=== PATIENT | female | born 1960 | race Caucasian/White ===

== ENCOUNTER 2017-08-20 13:25 | Outpatient (CLI) | payer MEDICAID ==
[~2017-08-20 13:25] MED LIST: DICL50TA8 PO
[2017-08-20 13:33] VITALS: BP 139/67
== END 2017-08-20 13:58 | disposition home or self-care (01) ==
LOC: ORTHO 13:25
PROVIDERS: ATTEND Nurse Practitioner Family
DX: S52.502A Unspecified fracture of the lower end of left radius, initial encounter for closed fracture (principal); F17.210 Nicotine dependence, cigarettes, uncomplicated; F15.90 Other stimulant use, unspecified, uncomplicated; Z88.1 Allergy status to other antibiotic agents; Z59.0 Homelessness; X58.XXXA Exposure to other specified factors, initial encounter; Y93.89 Activity, other specified; Y92.89 Other specified places as the place of occurrence of the external cause; Y99.8 Other external cause status
CPT/HCPCS: 29075; A4590

== ENCOUNTER 2017-09-15 14:37 | Outpatient (CLI) | payer MEDICAID | END 2017-09-15 15:30 | disposition home or self-care (01) | LOC: ORTHO 14:37 | PROVIDERS: ATTEND Nurse Practitioner Family | DX: S52.502K Unspecified fracture of the lower end of left radius, subsequent encounter for closed fracture with nonunion (principal); F15.90 Other stimulant use, unspecified, uncomplicated; Z88.8 Allergy status to other drugs, medicaments and biological substances; Z59.0 Homelessness; X58.XXXD Exposure to other specified factors, subsequent encounter | CPT/HCPCS: 29075; 73110; A4590 ==

== ENCOUNTER 2017-09-29 14:09 | Outpatient (CLI) | payer MEDICAID ==
[~2017-09-29] VITALS: Ht 167.6 cm; Wt 57.0 kg
[2017-09-29 14:33] VITALS: BP 180/121
[2017-09-29 14:37] VITALS: BP 154/81
[2017-09-29 14:45] VITALS: BP 154/81
== END 2017-09-29 15:07 | disposition home or self-care (01) ==
LOC: ORTHO 14:09
PROVIDERS: ATTEND Nurse Practitioner Family
DX: S52.502K Unspecified fracture of the lower end of left radius, subsequent encounter for closed fracture with nonunion (principal); E78.00 Pure hypercholesterolemia, unspecified; F17.210 Nicotine dependence, cigarettes, uncomplicated; F20.9 Schizophrenia, unspecified; F32.9 Major depressive disorder, single episode, unspecified; F41.9 Anxiety disorder, unspecified; G89.29 Other chronic pain; I10 Essential (primary) hypertension; F15.90 Other stimulant use, unspecified, uncomplicated; Z59.0 Homelessness; Z87.11 Personal history of peptic ulcer disease; Z60.2 Problems related to living alone; X58.XXXD Exposure to other specified factors, subsequent encounter
CPT/HCPCS: 73200

== ENCOUNTER 2017-10-26 20:00 | Emergency (ER) | payer MEDICAID ==
[~2017-10-26] VITALS: Ht 167.6 cm; Wt 60.0 kg
[~2017-10-26 20:00] MED LIST changes: +NAPR-56 PO
[2017-10-26] MEDS ORDERED: AZIT250T PO (21:44)
[2017-10-26] MEDS ORDERED: ALBU8.5H8 IH (21:44)
[2017-10-26] MEDS ORDERED: azithromycin 250mg tablet PO ONE (21:45)
[2017-10-26] MEDS ORDERED: ipratropium/albuterol 3ml nebule NEB ONE (21:45)
[2017-10-26 22:37] VITALS: BP 125/65
== END 2017-10-26 22:39 | disposition home or self-care (01) ==
LOC: ER 20:01
DX: J20.9 Acute bronchitis, unspecified (principal); E78.00 Pure hypercholesterolemia, unspecified; I10 Essential (primary) hypertension; G89.29 Other chronic pain; F15.10 Other stimulant abuse, uncomplicated; Z60.2 Problems related to living alone; Z59.0 Homelessness; Z56.0 Unemployment, unspecified; Z79.899 Other long term (current) drug therapy
CPT/HCPCS: 71045; 94640; 94760; 99283

== ENCOUNTER 2017-10-28 21:22 | Emergency (ER) | payer MEDICAID ==
[~2017-10-28] VITALS: Ht 167.6 cm; Wt 58.8 kg
[~2017-10-28 21:22] MED LIST changes: +ALBU8.5H8 IH; +AZIT250T PO
[2017-10-28] MEDS ORDERED: ibuprofen tablet 400 MG TABLET PO ONE (23:15)
[2017-10-28] MEDS ORDERED: acetaminophen 325mg tablet PO ONE (23:15)
[2017-10-29] MEDS ORDERED: HYDROcodone/acetaminophen 10/325mg tab PO ONE (00:30)
[2017-10-29 00:48] VITALS: BP 164/78
[2017-10-30] MEDS ORDERED: HYDR-3965 PO (10:12)
== END 2017-10-29 00:55 | disposition home or self-care (01) ==
LOC: ER 21:22
DX: S60.212A Contusion of left wrist, initial encounter (principal); I10 Essential (primary) hypertension; E78.00 Pure hypercholesterolemia, unspecified; G89.29 Other chronic pain; M19.90 Unspecified osteoarthritis, unspecified site; F15.10 Other stimulant abuse, uncomplicated; Z86.14 Personal history of Methicillin resistant Staphylococcus aureus infection; Z59.0 Homelessness; Z56.0 Unemployment, unspecified; Z60.2 Problems related to living alone; Z88.8 Allergy status to other drugs, medicaments and biological substances; Z79.899 Other long term (current) drug therapy; Z98.890 Other specified postprocedural states; X58.XXXA Exposure to other specified factors, initial encounter; Y93.89 Activity, other specified; Y92.89 Other specified places as the place of occurrence of the external cause; Y99.8 Other external cause status
CPT/HCPCS: 29125; 99283

== ENCOUNTER 2017-10-29 21:44 | Emergency (ER) | payer MEDICAID ==
[~2017-10-29] VITALS: Ht 167.6 cm; Wt 59.8 kg
[2017-10-29] MEDS ORDERED: acetaminophen 325mg tablet PO ONE (22:55)
[2017-10-29] MEDS ORDERED: ibuprofen 200mg tablet PO ONE (22:55)
[2017-10-29 23:50] VITALS: BP 117/119
[2017-10-30] MEDS ORDERED: HYDR-3965 PO (10:12)
== END 2017-10-29 23:50 | disposition home or self-care (01) ==
LOC: ER 21:44
DX: M79.602 Pain in left arm (principal); E78.00 Pure hypercholesterolemia, unspecified; I10 Essential (primary) hypertension; G89.29 Other chronic pain; F15.10 Other stimulant abuse, uncomplicated; Z56.0 Unemployment, unspecified; Z59.0 Homelessness; Z88.8 Allergy status to other drugs, medicaments and biological substances
CPT/HCPCS: 99284

== ENCOUNTER 2017-10-30 09:40 | Emergency (ER) | payer MEDICAID ==
[~2017-10-30] VITALS: Ht 167.6 cm; Wt 51.0 kg
[2017-10-30] MEDS ORDERED: HYDROcodone/acetaminophen 5mg/325mg tablet PO ONE (10:10)
[2017-10-30] MEDS ORDERED: HYDR-3965 PO (10:12)
[2017-10-30 10:50] VITALS: BP 154/92
== END 2017-10-30 10:45 | disposition home or self-care (01) ==
LOC: ER 09:40
DX: G89.18 Other acute postprocedural pain (principal); E78.00 Pure hypercholesterolemia, unspecified; I10 Essential (primary) hypertension; G89.29 Other chronic pain; M19.90 Unspecified osteoarthritis, unspecified site; F17.210 Nicotine dependence, cigarettes, uncomplicated; F15.10 Other stimulant abuse, uncomplicated; Z56.0 Unemployment, unspecified; Z59.0 Homelessness; Z60.2 Problems related to living alone; Z86.14 Personal history of Methicillin resistant Staphylococcus aureus infection; Z88.8 Allergy status to other drugs, medicaments and biological substances; Z79.899 Other long term (current) drug therapy
CPT/HCPCS: 99284

== ENCOUNTER 2017-11-06 12:11 | Emergency (ER) | payer MEDICAID ==
[~2017-11-06] VITALS: Ht 167.6 cm; Wt 55.0 kg
[~2017-11-06 12:11] MED LIST changes: +HYDR-3965 PO
[2017-11-06 12:27] VITALS: BP 151/86
[2017-11-06] MEDS ORDERED: IBUP-1984 PO (15:54)
== END 2017-11-06 16:30 | disposition home or self-care (01) ==
LOC: ER 12:12
DX: S52.92XG Unspecified fracture of left forearm, subsequent encounter for closed fracture with delayed healing (principal); E78.00 Pure hypercholesterolemia, unspecified; I10 Essential (primary) hypertension; G89.29 Other chronic pain; F15.10 Other stimulant abuse, uncomplicated; Z59.0 Homelessness; Z60.2 Problems related to living alone; Z56.0 Unemployment, unspecified; X58.XXXD Exposure to other specified factors, subsequent encounter
CPT/HCPCS: 99284

== ENCOUNTER 2017-11-15 09:55 | Emergency (ER) | payer MEDICAID ==
[~2017-11-15] VITALS: Ht 167.6 cm; Wt 58.1 kg
[~2017-11-15 09:55] MED LIST changes: +IBUP-1984 PO
[2017-11-15 10:08] VITALS: BP 163/87
== END 2017-11-15 12:28 | disposition home or self-care (01) ==
LOC: ER 09:57
DX: F43.9 Reaction to severe stress, unspecified (principal); M79.632 Pain in left forearm; Z47.89 Encounter for other orthopedic aftercare; G89.29 Other chronic pain; I10 Essential (primary) hypertension; F15.10 Other stimulant abuse, uncomplicated; E78.00 Pure hypercholesterolemia, unspecified; Z86.14 Personal history of Methicillin resistant Staphylococcus aureus infection; M19.90 Unspecified osteoarthritis, unspecified site; Z98.890 Other specified postprocedural states; Z88.6 Allergy status to analgesic agent; Z88.8 Allergy status to other drugs, medicaments and biological substances; Z59.0 Homelessness; Z56.0 Unemployment, unspecified; Z60.2 Problems related to living alone
CPT/HCPCS: 29125; 99283

== ENCOUNTER 2017-11-19 13:50 | Outpatient (CLI) | payer MEDICAID ==
[~2017-11-19 13:50] MED LIST changes: -NAPR-56 PO
== END 2017-11-19 14:30 | disposition home or self-care (01) ==
LOC: ORTHO 13:50
PROVIDERS: ATTEND Nurse Practitioner Family
DX: S52.502D Unspecified fracture of the lower end of left radius, subsequent encounter for closed fracture with routine healing (principal); Z59.0 Homelessness; Z88.6 Allergy status to analgesic agent; Z56.0 Unemployment, unspecified; X58.XXXD Exposure to other specified factors, subsequent encounter
CPT/HCPCS: 29260; 73100; 99213; A6449

== ENCOUNTER 2018-02-02 10:42 | Emergency (ER) | payer MEDICAID ==
[~2018-02-02] VITALS: Ht 167.6 cm; Wt 59.0 kg
[~2018-02-02 10:42] MED LIST changes: -HYDR-3965 PO; -IBUP-1984 PO
[2018-02-02 10:47] VITALS: BP 131/79
[2018-02-02] MEDS ORDERED: TETanus/Pertussis (Acell)/Diphther VAC/PF (Tdap-Adult) 0.5ml syringe IM ONE (12:40)
== END 2018-02-02 13:52 | disposition home or self-care (01) ==
LOC: ER 10:43
DX: S51.811A Laceration without foreign body of right forearm, initial encounter (principal); F15.90 Other stimulant use, unspecified, uncomplicated; I10 Essential (primary) hypertension; E78.00 Pure hypercholesterolemia, unspecified; G89.29 Other chronic pain; M19.90 Unspecified osteoarthritis, unspecified site; Z86.14 Personal history of Methicillin resistant Staphylococcus aureus infection; Z98.890 Other specified postprocedural states; Z88.6 Allergy status to analgesic agent; Z88.8 Allergy status to other drugs, medicaments and biological substances; Z79.899 Other long term (current) drug therapy; Z56.0 Unemployment, unspecified; Z60.2 Problems related to living alone; Z59.0 Homelessness; W25.XXXA Contact with sharp glass, initial encounter; Y93.89 Activity, other specified; Y92.89 Other specified places as the place of occurrence of the external cause; Y99.8 Other external cause status
CPT/HCPCS: 90471; 90715; 99283

== ENCOUNTER 2018-04-28 14:52 | Outpatient (CLI) | payer MEDICAID | END 2018-04-28 15:25 | disposition home or self-care (01) | LOC: ORTHO 14:52 | PROVIDERS: ATTEND Nurse Practitioner Family | DX: S52.502D Unspecified fracture of the lower end of left radius, subsequent encounter for closed fracture with routine healing (principal); F15.90 Other stimulant use, unspecified, uncomplicated; F17.210 Nicotine dependence, cigarettes, uncomplicated; Z56.0 Unemployment, unspecified; Z59.0 Homelessness; Z88.8 Allergy status to other drugs, medicaments and biological substances; W18.39XD Other fall on same level, subsequent encounter | CPT/HCPCS: 73100; 99213 ==

== ENCOUNTER 2018-05-31 14:22 | Outpatient (CLI) | payer MEDICAID ==
[2018-05-31 14:49] VITALS: BP 147/98
== END 2018-05-31 15:05 | disposition home or self-care (01) ==
LOC: ORTHO 14:22
PROVIDERS: ATTEND Nurse Practitioner Family
DX: S52.502K Unspecified fracture of the lower end of left radius, subsequent encounter for closed fracture with nonunion (principal); F17.210 Nicotine dependence, cigarettes, uncomplicated; Z56.0 Unemployment, unspecified; Z59.0 Homelessness; Z60.2 Problems related to living alone; Z88.8 Allergy status to other drugs, medicaments and biological substances; X58.XXXD Exposure to other specified factors, subsequent encounter
CPT/HCPCS: 73110; 99213

== ENCOUNTER 2018-07-13 03:32 | Emergency (ER) | payer MEDICAID ==
[~2018-07-13] VITALS: Ht 167.6 cm; Wt 79.5 kg
[2018-07-13 03:36] VITALS: BP 174/105
== END 2018-07-13 04:02 | disposition home or self-care (01) ==
LOC: ER 03:33
DX: J06.9 Acute upper respiratory infection, unspecified (principal); R23.4 Changes in skin texture; I10 Essential (primary) hypertension; E78.00 Pure hypercholesterolemia, unspecified; G89.29 Other chronic pain; M19.90 Unspecified osteoarthritis, unspecified site; F15.10 Other stimulant abuse, uncomplicated; F17.200 Nicotine dependence, unspecified, uncomplicated; Z56.0 Unemployment, unspecified; Z59.0 Homelessness; Z60.2 Problems related to living alone; Z87.11 Personal history of peptic ulcer disease; Z88.6 Allergy status to analgesic agent; Z88.8 Allergy status to other drugs, medicaments and biological substances
CPT/HCPCS: 99281

== ENCOUNTER 2018-08-08 22:09 | Emergency (ER) | payer MEDICAID ==
[~2018-08-08] VITALS: Ht 167.6 cm; Wt 66.5 kg
[2018-08-08 22:10] VITALS: BP 128/91
[2018-08-08] MEDS ORDERED: ALBU8HFA PO (23:59)
== END 2018-08-09 00:05 | disposition home or self-care (01) ==
LOC: ER 22:10
DX: M25.532 Pain in left wrist (principal); J40 Bronchitis, not specified as acute or chronic; E78.00 Pure hypercholesterolemia, unspecified; I10 Essential (primary) hypertension; G89.29 Other chronic pain; M19.90 Unspecified osteoarthritis, unspecified site; F17.200 Nicotine dependence, unspecified, uncomplicated; F15.90 Other stimulant use, unspecified, uncomplicated; Z98.890 Other specified postprocedural states; Z88.6 Allergy status to analgesic agent; Z88.8 Allergy status to other drugs, medicaments and biological substances; Z79.2 Long term (current) use of antibiotics; Z79.899 Other long term (current) drug therapy; Z60.2 Problems related to living alone; Z56.0 Unemployment, unspecified; Z59.0 Homelessness
CPT/HCPCS: 29125; 99283

== ENCOUNTER 2018-09-16 16:24 | Inpatient (IN) | payer MEDICAID ==
[~2018-09-16] VITALS: Ht 167.6 cm; Wt 65.9 kg
[2018-09-16 17:07] LABS: BASOPHILS % (AUTO) 0.6 % (0-1); EOSINOPHILS # (AUTO) 0.3 X10'3 (0-0.9); EOSINOPHILS % (AUTO) 4.4 % (0-6); HEMATOCRIT 41.8 % (35.0-45.0); HEMOGLOBIN 13.7 g/dl (12.0-16.0); LYMPHOCYTES # (AUTO) 1.7 X10'3 (1.1-4.8); LYMPHOCYTES % (AUTO) 23.3 % (21-51); MEAN CORPUSCULAR HEMOGLOBIN 29.7 PG (27.0-31.0); MEAN CORPUSCULAR HGB CONC 32.8 % (33.0-36.5); MEAN CORPUSCULAR VOLUME 90.5 FL (78-98); MEAN PLATELET VOLUME 8.6 FL (7.4-10.4); MONOCYTES # (AUTO) 0.6 X10'3 (0-0.9); MONOCYTES % (AUTO) 7.9 % (2-12); NEUTROPHILS # (AUTO) 4.8 X10'3 (1.8-7.7); NEUTROPHILS % (AUTO) 63.8 % (42-75); PLATELET COUNT 228 X10'3 (140-440); RED BLOOD COUNT 4.62 X10'6 (4.20-5.60); RED CELL DISTRIBUTION WIDTH 15.2 % (11.5-14.5); WHITE BLOOD COUNT 7.4 X10'3 (4.5-11.0)
[2018-09-16 17:25] LABS: ALANINE AMINOTRANSFERASE 103 U/L (12-78); ALBUMIN 3.9 G/DL (3.4-5.0); ALBUMIN/GLOBULIN RATIO 1.3 (1.1-1.5); ALKALINE PHOSPHATASE 109 IU/L (46-116); ANION GAP 10 (8-16); ASPARTATE AMINO TRANSFERASE 49 U/L (10-37); BILIRUBIN,TOTAL 0.9 MG/DL (0.1-1.0); BLOOD UREA NITROGEN 18 MG/DL (7-18); BUN/CREATININE RATIO 18.9 (6.6-38.0); CHLORIDE 107 MMOL/L (99-107); CREATININE 0.95 MG/DL (0.40-0.90); GLUCOSE 72 MG/DL (70-104); POTASSIUM 3.6 MMOL/L (3.5-5.1); SODIUM 146 MMOL/L (135-145); TOTAL CARBON DIOXIDE 28.6 MMOL/L (24-32); TOTAL PROTEIN 6.9 G/DL (6.4-8.2); eGFR 61 ML/MIN
[2018-09-16] MEDS ORDERED: iohexol 350MG/ML 100ml bottle IV ONE (17:36)
[2018-09-16] MEDS ORDERED: furosemide 10 MG/1 ML 10ml inj IV ONE (18:05)
--- NOTE | 2018-09-16 19:48 | NUR ---
PER ER MD NO NEED FOR REPEAT BLOOD CULTURES AT THIS TIME.
[2018-09-16] MEDS ORDERED: potassium Cl 40MEQ/NS 500ml 500 ML IV PRN ×2 (20:10)
[2018-09-16] MEDS ORDERED: mag hydrox/Alum hydrox/simeth 30ml oral suspension PO PRN (20:10)
[2018-09-16] MEDS ORDERED: magnesium hydroxide 30ml (MOM) UD suspension PO PRN (20:10)
[2018-09-16] MEDS ORDERED: acetaminophen 325mg tablet PO PRN ×2 (20:10)
[2018-09-16] MEDS ORDERED: ondansetron/PF 4mg/2ml inj IV PRN (20:10)
[2018-09-16] MEDS ORDERED: potassium Cl 20 mEq SR tablet PO PRN ×2 (20:10)
[2018-09-16 20:35] LABS: CLARITY,URINE CLEAR (Clear); COLOR,URINE YELLOW (Yellow); GLUCOSE, URINE NEGATIVE (Neg); KETONES,URINE NEGATIVE (Neg); LEUKOCYTE ESTERASE ,URINE NEGATIVE (Neg); NITRITES, URINE NEGATIVE (Neg); OCCULT BLOOD,URINE NEGATIVE (Neg); PH,URINE 7.5 (4.8-8.0); PROTEIN,URINE NEGATIVE (Neg); UROBILINOGEN,URINE 0.2 E.U/dL (0.2-1.0)
[2018-09-16 20:39] LABS: UA COLLECTION TYPE CLN CATCH MIDSTREAM
[2018-09-16 20:44] LABS: URINE AMPHETAMINE SCREEN POSITIVE (Neg); URINE BARBITUATE SCREEN NEGATIVE (Neg); URINE BENZODIAZEPINES SCREEN NEGATIVE (Neg); URINE CANNABINOID SCREEN NEGATIVE (Neg); URINE COCAINE SCREEN NEGATIVE (Neg); URINE METHADONE SCREEN NEGATIVE (Neg); URINE OPIATE SCREEN NEGATIVE (Neg); URINE PHENCYCLIDINE SCREEN NEGATIVE (Neg)
[2018-09-16] MEDS ORDERED: temazepam 15mg capsule PO PRN (21:00)
--- NOTE | 2018-09-16 21:14 | NUR ---
RELIEVING RN FOR BREAK, DR QUINTERO GAVE VERBAL/TELEPHONE ORDER NICOTINE PATCH 14 MG Q DAY
[2018-09-16] MEDS ORDERED: nicotine 14mg patch - 24hr TD ONE (21:15)
--- NOTE | 2018-09-16 21:25 | NUR ---
PT GIVEN BAGGED MEAL FROM ED SUPPLY
--- NOTE | 2018-09-16 22:12 | NUR ---
PT SEEN WALKING OUT THE EMS DOORS, SECURITY CALLED TO AMBULANCE BAY, PT STOPPED BEFORE CROSSING STREET. PT INFORMED THAT LEAVING THE HOSPITAL IS AGAINST POLICY AND IF SHE WANTS TO LEAVE SHE MUST HAVE IV REMOVED AND WOULD BE ASKED TO SIGN AMA. PT VOLUNTARILY WALKED BACKED TO ROOM WITH SECURITY PRESENT. PT INFORMED THAT THE HOSPITAL BUILDING IS VOLUNTARILY LEAVING AMA AND SHE WILL HAVE TO CHECK BACK IN TO ED.
--- NOTE | 2018-09-16 22:35 | NUR ---
MD QUINTERO NOTIFIED OF PATIENT PALAK FROM THE ED DEPARTMENT, MD ANTICIPATED THAT PATIENT WOULD WANT TO LEAVE DUE TO CONTINUED DRUG ABUSE.
--- NOTE | 2018-09-16 23:27 | NUR ---
relieving RN for break, pt is sleeping, resp even and unlabored
--- NOTE | 2018-09-17 00:43 | NUR ---
PT SLEEPING ON R SIDE, RESP EVEN UNLABORED.
--- NOTE | 2018-09-17 02:30 | NUR ---
PT RESTING ON BACK, V/S NOTED, PT EASILY AWOKEN, PT HAS NO COMPLAINTS AT THIS TIME.
--- NOTE | 2018-09-17 04:34 | NUR ---
PT UP TO USE BATHROOM, STEADY GAIT.
--- NOTE | 2018-09-17 07:15 | NUR ---
Received patient report from ER nurse Tara RN. Awaiting arrival to room 340A.
[2018-09-17 07:45] VITALS: BP 164/90
[2018-09-17 07:46] LABS: BASOPHILS % (AUTO) 0.4 % (0-1); EOSINOPHILS # (AUTO) 0.4 X10'3 (0-0.9); HEMOGLOBIN 14.5 g/dl (12.0-16.0); LYMPHOCYTES # (AUTO) 1.5 X10'3 (1.1-4.8); LYMPHOCYTES % (AUTO) 21.4 % (21-51); MEAN CORPUSCULAR HEMOGLOBIN 30.2 PG (27.0-31.0); MEAN CORPUSCULAR HGB CONC 33.6 % (33.0-36.5); MEAN CORPUSCULAR VOLUME 89.8 FL (78-98); MEAN PLATELET VOLUME 8.8 FL (7.4-10.4); MONOCYTES # (AUTO) 0.6 X10'3 (0-0.9); MONOCYTES % (AUTO) 7.7 % (2-12); NEUTROPHILS # (AUTO) 4.6 X10'3 (1.8-7.7); NEUTROPHILS % (AUTO) 64.5 % (42-75); PLATELET COUNT 235 X10'3 (140-440); RED BLOOD COUNT 4.79 X10'6 (4.20-5.60); WHITE BLOOD COUNT 7.2 X10'3 (4.5-11.0)
--- NOTE | 2018-09-17 07:46 | NUR ---
Patient arrived to room 340A. VSS. Patient oriented to room, call light, bed controls.
[2018-09-17] MEDS: enoxaparin 40mg/0.4ml syringe SUBCUT SCH (07:49)
[2018-09-17] MEDS ORDERED: furosemide 10 MG/1 ML 10ml inj IV ONE (08:00)
[2018-09-17] MEDS: K and/or MAG REPLACEMENT MC SCH (08:00)
[2018-09-17 08:07] LABS: ALBUMIN 3.6 G/DL (3.4-5.0); ANION GAP 9 (8-16); BLOOD UREA NITROGEN 18 MG/DL (7-18); BUN/CREATININE RATIO 19.6 (6.6-38.0); CALCIUM 8.3 MG/DL (8.5-10.1); CHLORIDE 106 MMOL/L (99-107); CHOL/HDL RATIO 4.4 (0.00-4.99); CHOLESTEROL 203 MG/DL (0-200); CREATININE 0.92 MG/DL (0.40-0.90); GLUCOSE 88 MG/DL (70-104); HDL CHOLESTEROL 46 MG/DL (35-60); LDL CHOLESTEROL 143 MG/DL (50-100); POTASSIUM 3.5 MMOL/L (3.5-5.1); SODIUM 144 MMOL/L (135-145); TRIGLYCERIDES 90 MG/DL (20-135); eGFR 63 ML/MIN
[2018-09-17] MEDS ORDERED: MUSCLE RELAXER (09:30)
[2018-09-17] MEDS ORDERED: ACET1TAB12 PO (09:30)
[2018-09-17] MEDS ORDERED: OTC ALLERGY MED PO (09:31)
--- NOTE | 2018-09-17 09:49 | NUR ---
Echo being done at bedside at this time.
[2018-09-17] MEDS ORDERED: CETI10TA15 PO (11:49)
[2018-09-17] MEDS ORDERED: ACET-1084 PO (11:49)
[2018-09-17] MEDS ORDERED: NAPR-1154 PO (11:49)
[2018-09-17 12:07] VITALS: BP 146/83
[2018-09-17] MEDS ORDERED: lisinopril 10 MG tablet PO ONE (14:50)
--- NOTE | 2018-09-17 18:15 | NUR ---
Problems reprioritized. Patient report given, questions answered & plan of care reviewed with Jameel HANSEN.
--- NOTE | 2018-09-17 18:16 | NUR ---
Patient in room [facility]. I have received report AMANDA HANSEN and had the opportunity to ask questions and assume patient care.
[2018-09-17 19:00] VITALS: BP 142/86
[2018-09-17] MEDS: furosemide 40mg/4ml inj IV SCH (20:05)
[2018-09-18] VITALS: BP 136/66
[2018-09-18 05:13] LABS: BASOPHILS % (AUTO) 0.5 % (0-1); EOSINOPHILS # (AUTO) 0.4 X10'3 (0-0.9); EOSINOPHILS % (AUTO) 5.6 % (0-6); HEMATOCRIT 45.9 % (35.0-45.0); HEMOGLOBIN 15.5 g/dl (12.0-16.0); LYMPHOCYTES # (AUTO) 1.6 X10'3 (1.1-4.8); LYMPHOCYTES % (AUTO) 20.8 % (21-51); MEAN CORPUSCULAR HEMOGLOBIN 30.2 PG (27.0-31.0); MEAN CORPUSCULAR HGB CONC 33.7 % (33.0-36.5); MEAN CORPUSCULAR VOLUME 89.7 FL (78-98); MEAN PLATELET VOLUME 9.1 FL (7.4-10.4); MONOCYTES # (AUTO) 0.6 X10'3 (0-0.9); MONOCYTES % (AUTO) 7.4 % (2-12); NEUTROPHILS # (AUTO) 5.1 X10'3 (1.8-7.7); NEUTROPHILS % (AUTO) 65.7 % (42-75); PLATELET COUNT 229 X10'3 (140-440); RED BLOOD COUNT 5.11 X10'6 (4.20-5.60); RED CELL DISTRIBUTION WIDTH 15.5 % (11.5-14.5); WHITE BLOOD COUNT 7.8 X10'3 (4.5-11.0)
--- NOTE | 2018-09-18 06:06 | NUR ---
Patient in room [facility]. I have received report from Jameel HANSEN and had the opportunity to ask questions and assume patient care.
--- NOTE | 2018-09-18 06:06 | NUR ---
Problems reprioritized. Patient report given, questions answered & plan of care reviewed with AMANDA HANSEN.
[2018-09-18 06:11] LABS: ALBUMIN 3.6 G/DL (3.4-5.0); ANION GAP 9 (8-16); BLOOD UREA NITROGEN 26 MG/DL (7-18); BUN/CREATININE RATIO 22.8 (6.6-38.0); CALCIUM 8.9 MG/DL (8.5-10.1); CHLORIDE 101 MMOL/L (99-107); CREATININE 1.14 MG/DL (0.40-0.90); GLUCOSE 96 MG/DL (70-104); POTASSIUM 3.8 MMOL/L (3.5-5.1); SODIUM 140 MMOL/L (135-145); TOTAL CARBON DIOXIDE 29.7 MMOL/L (24-32); eGFR 49 ML/MIN
[2018-09-18 07:30] VITALS: BP 149/87
[2018-09-18] MEDS: K and/or MAG REPLACEMENT MC SCH (07:36)
[2018-09-18] MEDS: furosemide 40mg/4ml inj IV SCH ×2 (07:38→19:05)
[2018-09-18] MEDS: enoxaparin 40mg/0.4ml syringe SUBCUT SCH (07:39)
[2018-09-18] MEDS: lisinopril 10 MG tablet PO SCH (07:39)
--- NOTE | 2018-09-18 09:45 | NUR ---
Informed Dr. King that pt refused lisinopril this AM. spoke to patient at bedside explaining the importance of taking medication. Pt still refusing. No new orders at this time.
[2018-09-18] MEDS ORDERED: loratadine 10mg tablet PO ONE (09:52)
[2018-09-18] MEDS ORDERED: nicotine 14mg patch - 24hr TD ONE (09:52)
[2018-09-18 11:46] VITALS: BP 125/71
[2018-09-18 18:00] VITALS: BP 128/65
--- NOTE | 2018-09-18 18:06 | NUR ---
Received report from primary care nurse Kay HANSEN. Assumed patient care. Patient is awake and alert on room air watching television. In no apparent distress. Call light and items of frequent use within reach. Will continue to monitor for changes.
--- NOTE | 2018-09-18 18:40 | NUR ---
Problems reprioritized. Patient report given, questions answered & plan of care reviewed with Mildred HANSEN.
[2018-09-19] VITALS: BP 140/79
[2018-09-19 05:32] LABS: BASOPHILS % (AUTO) 0.4 % (0-1); EOSINOPHILS # (AUTO) 0.4 X10'3 (0-0.9); EOSINOPHILS % (AUTO) 6.5 % (0-6); HEMATOCRIT 46.6 % (35.0-45.0); HEMOGLOBIN 15.4 g/dl (12.0-16.0); LYMPHOCYTES # (AUTO) 1.8 X10'3 (1.1-4.8); LYMPHOCYTES % (AUTO) 26.6 % (21-51); MEAN CORPUSCULAR HEMOGLOBIN 29.7 PG (27.0-31.0); MEAN CORPUSCULAR VOLUME 90.2 FL (78-98); MONOCYTES # (AUTO) 0.5 X10'3 (0-0.9); MONOCYTES % (AUTO) 7.4 % (2-12); NEUTROPHILS % (AUTO) 59.1 % (42-75); PLATELET COUNT 234 X10'3 (140-440); RED BLOOD COUNT 5.17 X10'6 (4.20-5.60); RED CELL DISTRIBUTION WIDTH 15.3 % (11.5-14.5); WHITE BLOOD COUNT 6.7 X10'3 (4.5-11.0)
[2018-09-19 05:38] LABS: ALBUMIN 3.6 G/DL (3.4-5.0); ANION GAP 10 (8-16); BLOOD UREA NITROGEN 25 MG/DL (7-18); BUN/CREATININE RATIO 27.5 (6.6-38.0); CALCIUM 9.1 MG/DL (8.5-10.1); CHLORIDE 102 MMOL/L (99-107); CREATININE 0.91 MG/DL (0.40-0.90); GLUCOSE 95 MG/DL (70-104); POTASSIUM 3.8 MMOL/L (3.5-5.1); SODIUM 141 MMOL/L (135-145); eGFR 64 ML/MIN
--- NOTE | 2018-09-19 06:31 | NUR ---
Patient in room [facility]. I have received report from TYRONE Levy and had the opportunity to ask questions and assume patient care. Patient is resting comfortably at this time. Call light and items of frequent use in reach of patient. Addendum: 09/19/18 at 0637 by Alena Richey RN wrong patient.
--- NOTE | 2018-09-19 06:33 | NUR ---
Reported off to Kay HANSEN. Patient is resting with relaxed and unlabored respirations on room air. Call light and items of frequent use within reach.
--- NOTE | 2018-09-19 06:49 | NUR ---
Patient in room [facility]. I have received report from Mildred HANSEN and had the opportunity to ask questions and assume patient care.
[2018-09-19] MEDS: K and/or MAG REPLACEMENT MC SCH (08:00)
[2018-09-19 08:18] VITALS: BP 148/82
[2018-09-19] MEDS: nicotine 14mg patch - 24hr TD SCH (08:24)
[2018-09-19] MEDS: loratadine 10mg tablet PO SCH (08:24)
[2018-09-19] MEDS: lisinopril 10 MG tablet PO SCH (08:25)
[2018-09-19] MEDS: enoxaparin 40mg/0.4ml syringe SUBCUT SCH (08:25)
[2018-09-19] MEDS: furosemide 40mg/4ml inj IV SCH ×2 (08:26→20:01)
[2018-09-19 11:27] VITALS: BP 130/76
[2018-09-19] MEDS ORDERED: POTA20TA19 PO (14:04)
[2018-09-19] MEDS ORDERED: FURO-149 PO (14:04)
[2018-09-19] MEDS ORDERED: CARV3.12 PO (14:04)
[2018-09-19] MEDS ORDERED: LISI10TA4 PO (14:04)
--- NOTE | 2018-09-19 16:40 | NUR ---
Patient unable to get discharge prescriptions filled until tomorrow, therefore pt will discharge tomorrow. Dr. King paged to notify.
--- NOTE | 2018-09-19 18:26 | NUR ---
Problems reprioritized. Patient report given, questions answered & plan of care reviewed with Jessenia HANSEN.
--- NOTE | 2018-09-19 18:31 | NUR ---
Patient in room [facility]. I have received report from Kay HANSEN and had the opportunity to ask questions and assume patient care. Pt was sitting up in bed finishing dinner and watching tv. No signs of distress at this time, will continue to monitor.
[2018-09-19 19:35] VITALS: BP 135/78
[2018-09-20 05:11] LABS: BASOPHILS % (AUTO) 0.6 % (0-1); EOSINOPHILS # (AUTO) 0.4 X10'3 (0-0.9); EOSINOPHILS % (AUTO) 6.4 % (0-6); HEMATOCRIT 47.4 % (35.0-45.0); HEMOGLOBIN 15.4 g/dl (12.0-16.0); LYMPHOCYTES # (AUTO) 1.9 X10'3 (1.1-4.8); LYMPHOCYTES % (AUTO) 28.9 % (21-51); MEAN CORPUSCULAR HEMOGLOBIN 29.3 PG (27.0-31.0); MEAN CORPUSCULAR HGB CONC 32.6 % (33.0-36.5); MEAN PLATELET VOLUME 8.9 FL (7.4-10.4); MONOCYTES # (AUTO) 0.5 X10'3 (0-0.9); MONOCYTES % (AUTO) 8.4 % (2-12); NEUTROPHILS # (AUTO) 3.6 X10'3 (1.8-7.7); NEUTROPHILS % (AUTO) 55.7 % (42-75); PLATELET COUNT 233 X10'3 (140-440); RED BLOOD COUNT 5.27 X10'6 (4.20-5.60); RED CELL DISTRIBUTION WIDTH 15.1 % (11.5-14.5); WHITE BLOOD COUNT 6.5 X10'3 (4.5-11.0)
[2018-09-20 05:25] LABS: ALBUMIN 3.5 G/DL (3.4-5.0); ANION GAP 10 (8-16); BLOOD UREA NITROGEN 30 MG/DL (7-18); BUN/CREATININE RATIO 28.3 (6.6-38.0); CALCIUM 9.2 MG/DL (8.5-10.1); CHLORIDE 100 MMOL/L (99-107); CREATININE 1.06 MG/DL (0.40-0.90); GLUCOSE 142 MG/DL (70-104); POTASSIUM 3.7 MMOL/L (3.5-5.1); SODIUM 139 MMOL/L (135-145); TOTAL CARBON DIOXIDE 29.5 MMOL/L (24-32); eGFR 53 ML/MIN
--- NOTE | 2018-09-20 06:36 | NUR ---
Problems reprioritized. Patient report given, questions answered & plan of care reviewed with Nimco HANSEN.
[2018-09-20] MEDS: K and/or MAG REPLACEMENT MC SCH (06:50)
[2018-09-20] MEDS: loratadine 10mg tablet PO SCH (07:24)
[2018-09-20] MEDS: lisinopril 10 MG tablet PO SCH (07:24)
[2018-09-20] MEDS: furosemide 40mg/4ml inj IV SCH (07:24)
[2018-09-20] MEDS: nicotine 14mg patch - 24hr TD SCH (07:25)
[2018-09-20] MEDS: enoxaparin 40mg/0.4ml syringe SUBCUT SCH (07:25)
[2018-09-20 07:30] VITALS: BP 134/79
[2018-09-20] MEDS ORDERED: NICO-631 TD (11:11)
[2018-09-20 11:18] VITALS: BP 101/53
--- NOTE | 2018-09-20 13:04 | NUR ---
Patient discharged back to friends. Taxi picked patient up. IV removed. All belongings taken from room. Stable and appropriate for discharge. Community resources given to patient. Educated on discharge instructions.Medications delivered to bedside by [facility] pharmacy.
== END 2018-09-20 13:00 | disposition home or self-care (01) | DRG 194 ==
LOC: ER 16:24 → ED HOLD 20:09 → EDBEDREQDT 09-17 07:12 → SUR 3N 09-17 07:38
PROVIDERS: ADMIT Hospitalist; ATTEND Family Medicine
PROC: B32T1ZZ Computerized Tomography (CT Scan) of Left Pulmonary Artery using Low Osmolar Contrast (ICD-10-PCS; principal; 2018-09-16)
PROC: B3201ZZ Computerized Tomography (CT Scan) of Thoracic Aorta using Low Osmolar Contrast (ICD-10-PCS; 2018-09-16)
PROC: B32S1ZZ Computerized Tomography (CT Scan) of Right Pulmonary Artery using Low Osmolar Contrast (ICD-10-PCS; 2018-09-16)
DX: I11.0 Hypertensive heart disease with heart failure (principal); F20.9 Schizophrenia, unspecified; I42.7 Cardiomyopathy due to drug and external agent; E78.00 Pure hypercholesterolemia, unspecified; I50.23 Acute on chronic systolic (congestive) heart failure; F15.10 Other stimulant abuse, uncomplicated; F17.200 Nicotine dependence, unspecified, uncomplicated; F90.9 Attention-deficit hyperactivity disorder, unspecified type; F32.9 Major depressive disorder, single episode, unspecified; M19.90 Unspecified osteoarthritis, unspecified site; T43.625A Adverse effect of amphetamines, initial encounter; F19.10 Other psychoactive substance abuse, uncomplicated; F41.9 Anxiety disorder, unspecified; G89.29 Other chronic pain; Z86.14 Personal history of Methicillin resistant Staphylococcus aureus infection; Z59.0 Homelessness; Z88.6 Allergy status to analgesic agent; Z88.8 Allergy status to other drugs, medicaments and biological substances; Z71.51 Drug abuse counseling and surveillance of drug abuser; Z87.11 Personal history of peptic ulcer disease; Y92.89 Other specified places as the place of occurrence of the external cause
CPT/HCPCS: 36415; 71046; 71275; 74176; 80048; 80053; 80061; 80305; 81003; 83605; 83880; 84443; 84484; 85025; 87040; 87070; 93005; 93306; 96374; 99285; G0378; J1650; J1940; Q9967

== ENCOUNTER 2018-12-01 23:29 | Emergency (ER) | payer MEDICAID ==
[~2018-12-01] VITALS: Ht 167.6 cm; Wt 57.4 kg
[~2018-12-01 23:29] MED LIST changes: +ACET-1084 PO; -ALBU8.5H8 IH; -AZIT250T PO; +CARV3.12 PO; +CETI10TA15 PO; -DICL50TA8 PO; +FURO-149 PO; +LISI10TA4 PO
[2018-12-01 23:31] VITALS: BP 153/75
== END 2018-12-02 01:17 | disposition left against medical advice (07) ==
LOC: ER 23:29
DX: K08.89 Other specified disorders of teeth and supporting structures (principal); Z53.21 Procedure and treatment not carried out due to patient leaving prior to being seen by health care provider

== ENCOUNTER 2018-12-11 11:01 | Emergency (ER) | payer MEDICAID ==
[~2018-12-11] VITALS: Ht 167.6 cm; Wt 64.6 kg
[2018-12-11 11:18] VITALS: BP 142/85
[2018-12-11] MEDS ORDERED: PENI500T2 PO (12:00)
--- NOTE | 2018-12-11 12:08 | NUR ---
Attempted to discharge pt. Requesting "something" for pain. Then states that she doesn't want a "pain pill" because they make her too tired. Pt goes on to request Naproxen. STACIE Regalado made aware; states she will speak to pt.
[2018-12-11] MEDS ORDERED: NAPR-56 PO (12:10)
== END 2018-12-11 12:16 | disposition home or self-care (01) ==
LOC: ER 11:02
DX: K02.9 Dental caries, unspecified (principal); K04.7 Periapical abscess without sinus; E78.00 Pure hypercholesterolemia, unspecified; I10 Essential (primary) hypertension; G89.29 Other chronic pain; M19.90 Unspecified osteoarthritis, unspecified site; Z86.14 Personal history of Methicillin resistant Staphylococcus aureus infection; F15.90 Other stimulant use, unspecified, uncomplicated; Z98.890 Other specified postprocedural states; Z88.8 Allergy status to other drugs, medicaments and biological substances; Z79.899 Other long term (current) drug therapy; Z56.0 Unemployment, unspecified; Z59.0 Homelessness; Z60.2 Problems related to living alone
CPT/HCPCS: 99283

== ENCOUNTER 2019-04-12 13:12 | Emergency (ER) | payer MEDICAID ==
[~2019-04-12] VITALS: Ht 167.6 cm; Wt 63.6 kg
--- NOTE | 2019-04-12 13:25 | NUR ---
PT WAS NIL [id number]
[2019-04-12 14:08] VITALS: BP 156/90
[2019-04-12] MEDS ORDERED: aspirin 81mg tab.chew PO ONE (14:10)
--- NOTE | 2019-04-12 14:24 | NUR ---
Pt refusing ASA stating it gives her an upset stomach and diarrhea.
[2019-04-12 14:38] LABS: BASOPHILS # (AUTO) 0.1 X10'3 (0-0.2); BASOPHILS % (AUTO) 1.2 % (0-1); EOSINOPHILS # (AUTO) 0.5 X10'3 (0-0.9); EOSINOPHILS % (AUTO) 7.3 % (0-6); HEMATOCRIT 40.3 % (35.0-45.0); HEMOGLOBIN 13.2 g/dl (12.0-16.0); LYMPHOCYTES # (AUTO) 1.7 X10'3 (1.1-4.8); LYMPHOCYTES % (AUTO) 24.8 % (21-51); MEAN CORPUSCULAR HGB CONC 32.8 g/dL (33.0-36.5); MEAN CORPUSCULAR VOLUME 91.3 FL (78-98); MEAN PLATELET VOLUME 7.7 FL (7.4-10.4); MONOCYTES # (AUTO) 0.6 X10'3 (0-0.9); MONOCYTES % (AUTO) 9.2 % (2-12); NEUTROPHILS # (AUTO) 3.9 X10'3 (1.8-7.7); NEUTROPHILS % (AUTO) 57.5 % (42-75); PLATELET COUNT 259 X10'3 (140-440); RED BLOOD COUNT 4.42 X10'6 (4.20-5.60); RED CELL DISTRIBUTION WIDTH 14.1 % (11.5-14.5); WHITE BLOOD COUNT 6.7 X10'3 (4.5-11.0)
[2019-04-12 14:49] LABS: ALANINE AMINOTRANSFERASE 35 U/L (12-78); ALBUMIN 3.8 G/DL (3.4-5.0); ALBUMIN/GLOBULIN RATIO 1.1 (1.1-1.5); ALKALINE PHOSPHATASE 86 IU/L (46-116); ANION GAP 10 (8-16); ASPARTATE AMINO TRANSFERASE 11 U/L (10-37); BILIRUBIN,TOTAL 0.5 MG/DL (0.1-1.0); BLOOD UREA NITROGEN 19 MG/DL (7-18); BUN/CREATININE RATIO 18.6 (6.6-38.0); CALCIUM 8.8 MG/DL (8.5-10.1); CHLORIDE 106 MMOL/L (99-107); CREATININE 1.02 MG/DL (0.40-0.90); GLUCOSE 88 MG/DL (70-104); POTASSIUM 3.9 MMOL/L (3.5-5.1); SODIUM 145 MMOL/L (135-145); TOTAL CARBON DIOXIDE 28.9 MMOL/L (24-32); TOTAL PROTEIN 7.4 G/DL (6.4-8.2); eGFR 56 ML/MIN
[2019-04-12 14:57] LABS: MAGNESIUM 1.8 MG/DL (1.5-2.4)
== END 2019-04-12 15:03 | disposition left against medical advice (07) ==
LOC: ER 13:13
DX: R07.89 Other chest pain (principal); R26.2 Difficulty in walking, not elsewhere classified; R53.83 Other fatigue; F15.10 Other stimulant abuse, uncomplicated; E78.00 Pure hypercholesterolemia, unspecified; I11.0 Hypertensive heart disease with heart failure; I50.9 Heart failure, unspecified; G89.29 Other chronic pain; F41.9 Anxiety disorder, unspecified; F32.9 Major depressive disorder, single episode, unspecified; F20.9 Schizophrenia, unspecified; M19.90 Unspecified osteoarthritis, unspecified site; Z86.14 Personal history of Methicillin resistant Staphylococcus aureus infection; Z98.890 Other specified postprocedural states; Z60.2 Problems related to living alone; Z59.0 Homelessness; Z56.0 Unemployment, unspecified; Z88.8 Allergy status to other drugs, medicaments and biological substances; Z79.899 Other long term (current) drug therapy
CPT/HCPCS: 36415; 71045; 80053; 83735; 83880; 84484; 85025; 93005; 99284

== ENCOUNTER 2019-05-11 19:19 | Emergency (ER) | payer MEDICAID ==
[~2019-05-11] VITALS: Ht 167.6 cm; Wt 63.6 kg
--- NOTE | 2019-05-11 19:28 | NUR ---
Spoke to Dr. Bartlett and Sridhar Da Silva about the patient's situation and condition. No orders for stroke alert at this time.
--- NOTE | 2019-05-11 19:48 | NUR ---
PT WAS ABLE TO STAND TO PUT ON GOWN BY HERSELF.
[2019-05-11 20:23] LABS: BASOPHILS % (AUTO) 0.4 % (0-1); EOSINOPHILS # (AUTO) 0.3 X10'3 (0-0.9); EOSINOPHILS % (AUTO) 3.6 % (0-6); HEMATOCRIT 38.7 % (35.0-45.0); HEMOGLOBIN 12.8 g/dl (12.0-16.0); LYMPHOCYTES # (AUTO) 1.3 X10'3 (1.1-4.8); LYMPHOCYTES % (AUTO) 14.8 % (21-51); MEAN CORPUSCULAR HGB CONC 33.1 g/dL (33.0-36.5); MEAN CORPUSCULAR VOLUME 90.6 FL (78-98); MEAN PLATELET VOLUME 8.8 FL (7.4-10.4); MONOCYTES # (AUTO) 0.5 X10'3 (0-0.9); MONOCYTES % (AUTO) 5.6 % (2-12); NEUTROPHILS # (AUTO) 6.8 X10'3 (1.8-7.7); NEUTROPHILS % (AUTO) 75.6 % (42-75); PLATELET COUNT 188 X10'3 (140-440); RED BLOOD COUNT 4.27 X10'6 (4.20-5.60); RED CELL DISTRIBUTION WIDTH 14.3 % (11.5-14.5)
[2019-05-11 20:39] LABS: ALANINE AMINOTRANSFERASE 29 U/L (12-78); ALBUMIN 3.3 G/DL (3.4-5.0); ALBUMIN/GLOBULIN RATIO 0.9 (1.1-1.5); ALKALINE PHOSPHATASE 66 IU/L (46-116); ANION GAP 10 (8-16); ASPARTATE AMINO TRANSFERASE 10 U/L (10-37); BILIRUBIN,TOTAL 0.5 MG/DL (0.1-1.0); BLOOD UREA NITROGEN 11 MG/DL (7-18); BUN/CREATININE RATIO 11.1 (6.6-38.0); CALCIUM 8.1 MG/DL (8.5-10.1); CHLORIDE 107 MMOL/L (99-107); CREATININE 0.99 MG/DL (0.40-0.90); GLUCOSE 119 MG/DL (70-104); POTASSIUM 3.6 MMOL/L (3.5-5.1); SODIUM 144 MMOL/L (135-145); TOTAL CARBON DIOXIDE 27.5 MMOL/L (24-32); TOTAL PROTEIN 6.8 G/DL (6.4-8.2); eGFR 58 ML/MIN
[2019-05-11] MEDS ORDERED: clopidogrel 75mg tablet PO ONE (21:00)
[2019-05-11 22:22] VITALS: BP 160/85
== END 2019-05-11 22:29 | disposition home or self-care (01) ==
LOC: ER 19:21
DX: R07.89 Other chest pain (principal); F07.81 Postconcussional syndrome; R20.0 Anesthesia of skin; E78.00 Pure hypercholesterolemia, unspecified; I10 Essential (primary) hypertension; J44.9 Chronic obstructive pulmonary disease, unspecified; G89.29 Other chronic pain; F41.9 Anxiety disorder, unspecified; F32.9 Major depressive disorder, single episode, unspecified; F20.9 Schizophrenia, unspecified; F15.90 Other stimulant use, unspecified, uncomplicated; Z87.11 Personal history of peptic ulcer disease; Z98.890 Other specified postprocedural states; Z86.14 Personal history of Methicillin resistant Staphylococcus aureus infection; Z56.0 Unemployment, unspecified; Z59.0 Homelessness; Z88.6 Allergy status to analgesic agent; Z88.8 Allergy status to other drugs, medicaments and biological substances; Z79.899 Other long term (current) drug therapy
CPT/HCPCS: 36415; 70450; 80053; 82948; 84484; 85025; 93005; 99284